=== PATIENT | male | born 1945 | race American Indian/Alaskan Native ===

== ENCOUNTER 2017-10-22 20:18 | Emergency (ER) | payer MEDICARE ==
[2017-10-22 21:50] LABS: Hematocrit 42.7 % (35.5-45.6); Hemoglobin 14.4 gm/dl (11.8-15.2); Mean Corpuscular HGB Conc 34 % (32-34); Mean Corpuscular Hemoglobin 31 pg (28-32); Mean Corpuscular Volume 92 fl (84-94); Platelet Count 250 K/mm3 (140-440); Red Blood Count 4.65 M/mm3 (3.65-5.03); Red Cell Distribution Width 13.7 % (13.2-15.2)
[2017-10-22 22:08] LABS: BUN/Creatinine Ratio 12; Blood Urea Nitrogen 15 mg/dL (9-20); Calcium 9.5 mg/dL (8.4-10.2); Hemolysis Index 4
[2017-10-22] MEDS ORDERED: NACL 0.9% 500 ML IR ONE (23:57)
--- NOTE | 2017-10-23 00:26 | Emergency Department Report ---
ED Male HPI - General Chief complaint: Urogenital-Male Stated complaint: CATH REMOVAL Time Seen by Provider: 10/23/17 00:18 Source: patient Mode of arrival: Ambulatory Limitations: No Limitations - History of Present Illness Initial comments: Patient is 73 years old male with history of hypertension, benign prostatic hypertrophy and recent Cordero catheter insertion by Dr. Ramirez. Patient presented to the ER complaining that the catheter is not working. Patient denied any fever, nausea or vomiting. No abdominal pain. MD Complaint: other (urine retention) -: Gradual Severity: moderate - Related Data Home Medications Medication Instructions Recorded Confirmed Last Taken Pantoprazole [Protonix TAB] 20 mg PO BID 11/10/13 12/04/13 11/10/13 Tamsulosin [Flomax] 0.4 mg PO DAILY 11/10/13 12/04/13 11/10/13 Valsartan [Diovan] 320 mg PO DAILY 11/10/13 12/04/13 11/11/13 Previous Rx's Medication Instructions Recorded Last Taken Type Metoprolol [Lopressor TAB] 25 mg PO BID #60 tablet 12/10/13 Unknown Rx Simvastatin [Zocor TAB] 20 mg PO QHS #30 tablet 12/10/13 Unknown Rx Warfarin [Coumadin] 7.5 mg PO DAILY@1700 #14 tablet 12/10/13 Unknown Rx Allergies Allergy/AdvReac Type Severity Reaction Status Date / Time No Known Allergies Allergy Unverified 12/04/13 11:24 ED Review of Systems ROS: Stated complaint: CATH REMOVAL Other details as noted in HPI Comment: All other systems reviewed and negative Constitutional: denies: chills, fever Respiratory: denies: cough, shortness of breath, SOB with exertion, wheezing Cardiovascular: denies: chest pain, palpitations, dyspnea on exertion Gastrointestinal: denies: abdominal pain, nausea, vomiting Genitourinary: urgency Neurological: denies: headache, weakness ED Past Medical Hx - Past Medical History Hx Hypertension: Yes Hx GERD: Yes Hx Renal Disease: (BPH) Additional medical history: indwelling cath 10/16/2017 enlarged prostate - Social History Smoking Status: Never Smoker Substance Use Type: None - Medications Home Medications: Home Medications Medication Instructions Recorded Confirmed Last Taken Type Pantoprazole [Protonix TAB] 20 mg PO BID 08/26/14 09/19/14 08/26/14 History Tamsulosin [Flomax] 0.4 mg PO DAILY 11/10/13 12/04/13 11/10/13 History Valsartan [Diovan] 320 mg PO DAILY 11/10/13 12/04/13 11/11/13 History Metoprolol [Lopressor TAB] 25 mg PO BID #60 tablet 12/10/13 Unknown Rx Simvastatin [Zocor TAB] 20 mg PO QHS #30 tablet 12/10/13 Unknown Rx Warfarin [Coumadin] 7.5 mg PO DAILY@1700 #14 tablet 12/10/13 Unknown Rx ED Physical Exam - General Limitations: No Limitations General appearance: alert, in no apparent distress - Head Head exam: Present: atraumatic, normocephalic - ENT ENT exam: Present: normal exam, normal orophraynx, mucous membranes moist - Neck Neck exam: Present: normal inspection, full ROM. Absent: tenderness, meningismus - Respiratory Respiratory exam: Present: normal lung sounds bilaterally - Cardiovascular Cardiovascular Exam: Present: regular rate, normal rhythm, normal heart sounds - GI/Abdominal GI/Abdominal exam: Present: soft, distended (suprapubic), normal bowel sounds. Absent: tenderness, guarding, rebound, rigid, mass, bruit, pulsatile mass, hernia - exam: Present: normal inspection, other (Cordero catheter in place). Absent: testicular tenderness, urethral discharge, scrotal swelling External exam: Present: normal external exam, bleeding. Absent: erythema, swelling, lesions, lacerations, ecchymosis - Extremities Exam Extremities exam: Present: normal inspection - Back Exam Back exam: Present: normal inspection, full ROM. Absent: tenderness, CVA tenderness (R), CVA tenderness (L), muscle spasm, paraspinal tenderness, vertebral tenderness - Neurological Exam Neurological exam: Present: alert, oriented X3, CN II-XII intact, normal gait, reflexes normal - Skin Skin exam: Present: warm, intact, normal color ED Course Vital Signs 10/22/17 10/23/17 21:05 00:17 Temperature 98.1 F Pulse Rate 86 Respiratory 18 22 Rate Blood Pressure 156/86 O2 Sat by Pulse 96 98 Oximetry - Reevaluation(s) Reevaluation #1: 10/23/17 00:25 Cordero catheter flushed with good urine flow. Reevaluation #2: 10/23/17 01:55 Patient stated that he is feeling much better. Urinary flow is normal with no evidence of obstruction. ED Medical Decision Making - Lab Data Result diagrams: 10/22/17 21:30 10/22/17 21:30 Critical care attestation.: If time is entered above; I have spent that time in minutes in the direct care of this critically ill patient, excluding procedure time. ED Disposition Clinical Impression: Acute retention of urine, BPH (benign prostatic hyperplasia) Disposition: TO HOME OR SELFCARE Is pt being admited?: No Condition: Stable Instructions: Urinary Retention in Men (ED) Referrals: SHANAE RAMIREZ MD [Staff Physician] - 2-3 Days
[2017-10-23 08:02] VITALS: BP 146/70
== END 2017-10-23 02:30 | disposition home or self-care (01) ==
LOC: ED 20:18 → EDBD 20:18 → ED 10-23 02:30
DX: T83.098A Other mechanical complication of other urinary catheter, initial encounter (principal); R33.9 Retention of urine, unspecified; N40.0 Benign prostatic hyperplasia without lower urinary tract symptoms; I10 Essential (primary) hypertension; K21.9 Gastro-esophageal reflux disease without esophagitis
CPT/HCPCS: 36415; 51702; 80048; 85027